=== PATIENT | male | born 1940 | race Caucasian/White ===

== ENCOUNTER 2023-11-03 06:13 | Day surgery (SDC) | payer MEDICARE, OTHER ==
[2023-10-27 12:06] LABS: BASOPHILS # (AUTO) 0.1 X10'3 (0-0.2); BASOPHILS % (AUTO) 0.9 % (0-1); EOSINOPHILS # (AUTO) 0.1 X10'3 (0-0.9); EOSINOPHILS % (AUTO) 2.1 % (0-6); LYMPHOCYTES # (AUTO) 1.1 X10'3 (1.1-4.8); LYMPHOCYTES % (AUTO) 18.6 % (21-51); MEAN CORPUSCULAR HEMOGLOBIN 30.6 PG (27.0-31.0); MEAN CORPUSCULAR HGB CONC 32.7 g/dL (33.0-36.5); MEAN CORPUSCULAR VOLUME 93.4 FL (78-98); MEAN PLATELET VOLUME 10.1 FL (7.4-10.4); MONOCYTES # (AUTO) 0.4 X10'3 (0-0.9); MONOCYTES % (AUTO) 7.3 % (2-12); NEUTROPHILS # (AUTO) 4.2 X10'3 (1.8-7.7); NEUTROPHILS % (AUTO) 71.1 % (42-75); PRE OP HEMATOCRIT 45.8 % (42.0-52.0); PRE OP PLATELET COUNT 163 X10'3 (140-440); RED BLOOD COUNT 4.91 X10'6 (4.70-6.10); RED CELL DISTRIBUTION WIDTH 14.6 % (11.5-14.5)
[2023-10-27 12:21] LABS: ALBUMIN 3.4 G/DL (3.4-5.0); ALBUMIN/GLOBULIN RATIO 0.9 (1.1-1.5); ALKALINE PHOSPHATASE 82 IU/L (46-116); BLOOD UREA NITROGEN 13 MG/DL (7-18); BUN/CREATININE RATIO 11.7 (10.0-20.0); CALCIUM 8.8 MG/DL (8.5-10.1); CHLORIDE 107 MMOL/L (99-107); CREATININE 1.11 MG/DL (0.60-1.10); PRE OP ALT 22 U/L (30-65); PRE OP ANION GAP 6 (8-16); PRE OP AST 18 U/L (10-37); PRE OP BILIRUB, TOTAL 0.7 MG/DL (0.0-1.0); PRE OP GLUCOSE 95 MG/DL (70-104); PRE OP POTASSIUM 3.8 MMOL/L (3.4-5.1); PRE OP SODIUM 140 MMOL/L (135-145); TOTAL CARBON DIOXIDE 26.8 MMOL/L (24-32); TOTAL PROTEIN 7.1 G/DL (6.4-8.2); eGFR 63 ML/MIN
[2023-11-03] VITALS (7 sets, daily range): BP systolic 135–167; BP diastolic 70–82; PULSE 46–52; RESP 14–21; TEMP 97.7; O2SAT 16–99
[~2023-11-03] VITALS: Ht 172.7 cm; Wt 90.0 kg
[2023-11-03] MEDS: clindamycin 600mg/D5W 50ml 50 ML IV ONE (05:30)
[~2023-11-03 06:13] MED LIST: FLO0.4C; LEVO75TA7 PO; METF-1203 PO; VITAMIN B12; VITAMIN D3
[2023-11-03] MEDS: ringers solution, lacted 1,000 ML IV SCH (07:09)
[2023-11-03] MEDS: famotidine 20mg tablet PO ONE (07:09)
[2023-11-03] MEDS ORDERED: midazolam 1 mg/ML 2ml injection ONE (08:28)
[2023-11-03] MEDS: LIDOcaine 1% (10mg/ml)w/preservative inj. 20ml MDV ONE (11:53)
[2023-11-03] MEDS: BUPIVAcaine/PF 2.5mg/ml (0.25%) 10ml vial ONE (11:53)
== END 2023-11-03 09:35 | disposition home or self-care (01) ==
LOC: PAS 06:13
PROVIDERS: ATTEND Orthopaedic Surgery Hand Surgery
DX: G56.01 Carpal tunnel syndrome, right upper limb (principal); E11.9 Type 2 diabetes mellitus without complications; E03.9 Hypothyroidism, unspecified; E66.9 Obesity, unspecified; Z87.891 Personal history of nicotine dependence; Z87.442 Personal history of urinary calculi; Z79.84 Long term (current) use of oral hypoglycemic drugs; Z79.890 Hormone replacement therapy; Z79.891 Long term (current) use of opiate analgesic; Z79.899 Other long term (current) drug therapy; Z98.890 Other specified postprocedural states; Z68.30 Body mass index [BMI] 30.0-30.9, adult; Z88.0 Allergy status to penicillin; Z88.8 Allergy status to other drugs, medicaments and biological substances
CPT/HCPCS: 36415; 64721; 80053; 82948; 85025; A4215; A6449; J2250; J3490; J7030; J7120; Z7506; Z7512; Z7610